=== PATIENT | female | born 1940 | race Caucasian/White ===

== ENCOUNTER 2016-09-21 04:24 | Inpatient (IN) | payer MEDICARE, BC ==
[~2016-09-21] VITALS: Ht 160 cm; Wt 94.2 kg
[2016-09-21] MEDS ORDERED: ACETAMINOPHEN 650 MG/20.3 ML UDC ONE (04:49)
[2016-09-21] MEDS ORDERED: ACETAMINOPHEN 325 MG TAB ONE (04:50)
[2016-09-21] MEDS ORDERED: SODIUM CHLORIDE 0.9% 1,000 ML ONE (05:00)
[2016-09-21] MEDS ORDERED: CEFTRIAXONE 1 GM VIAL ONE (06:20)
[2016-09-21] MEDS ORDERED: SODIUM CHLORIDE 0.9% 100 ML IV ONE (06:21)
[2016-09-21] MEDS ORDERED: METHYLPRED SOD SUCC 125 MG/2 ML VIAL IV ONE (08:15)
[2016-09-21] MEDS ORDERED: NITROGLYCERIN 0.3 MG SL PRN (08:20)
[2016-09-21] MEDS ORDERED: ARTIF TEARS OP SOLN 0.4ML EYE EACH PRN (08:20)
[2016-09-21] MEDS ORDERED: SALINE FLUSH 10 ML FLUSH PRN (08:25)
[2016-09-21] MEDS ORDERED: DEXTROSE 50% SYRINGE 50 ML IV PRN (08:25)
[2016-09-21] MEDS ORDERED: GLUCAGON 1 MG VIAL IM PRN (08:25)
[2016-09-21] MEDS ORDERED: ACETAMINOPHEN 325 MG TAB PO PRN (08:25)
[2016-09-21] MEDS: CEFTRIAXONE 1 GM in SODIUM CHLORIDE 0.9% 50 ML IV SCH (09:00)
[2016-09-21 10:00] VITALS: BP_SYST 118; BP_SYST 122; RESP 16; TEMP 98.8; Ht 160 cm; Wt 94.2 kg
[2016-09-21] MEDS: SODIUM CHLORIDE 0.9% 1,000 ML IV SCH ×2 (10:06→17:24)
[2016-09-21] MEDS: [UNRECOGNIZED DRUG - REMARK] XX SCH ×2 (11:27→19:40)
[2016-09-21] MEDS: METRONIDAZOLE 500 MG TAB PO SCH ×3 (11:30→20:38)
[2016-09-21] MEDS: ASPIRIN 81 MG CHEW TAB PO SCH (11:30)
[2016-09-21] MEDS: FAMOTIDINE 20 MG INJ IV SCH ×2 (11:30→20:40)
[2016-09-21] MEDS: GABAPENTIN 300 MG CAP PO SCH ×2 (11:31→20:39)
[2016-09-21] MEDS: FLUTICASONE 0.05% NA BTL NARE EACH SCH ×2 (11:31→20:42)
[2016-09-21] MEDS: COMBIGAN OP SOLN EYE EACH SCH ×2 (11:31→20:42)
[2016-09-21] MEDS: PREDNISONE 20 MG TAB PO SCH (11:37)
[2016-09-21 11:48] VITALS: RESP 16
[2016-09-21 16:45] VITALS: BP_SYST 120; RESP 16; TEMP 98.8
[2016-09-21 19:58] VITALS: BP_SYST 120; RESP 20; TEMP 97.4
[2016-09-21] MEDS: LORAZEPAM 0.5 MG TAB PO SCH (20:42)
[2016-09-21] MEDS ORDERED: MONTELUKAST 10 MG TAB PO SCH (21:00)
[2016-09-21] MEDS: SALINE FLUSH 10 ML FLUSH SCH (21:04)
[2016-09-21 22:37] VITALS: BP_SYST 130; RESP 20
[2016-09-22] VITALS (7 sets, daily range): BP systolic 92–134; RESP 18–20; TEMP 97.2–98.5
[2016-09-22] MEDS: SODIUM CHLORIDE 0.9% FLUSH BAG 500 ML IV SCH (06:00)
[2016-09-22] MEDS: SALINE FLUSH 10 ML FLUSH SCH ×2 (07:08→19:40)
[2016-09-22] MEDS: [UNRECOGNIZED DRUG - REMARK] XX SCH ×2 (08:00→19:40)
[2016-09-22] MEDS: PREDNISONE 20 MG TAB PO SCH (08:24)
[2016-09-22] MEDS: CEFTRIAXONE 1 GM in SODIUM CHLORIDE 0.9% 50 ML IV SCH (08:24)
[2016-09-22] MEDS: ASPIRIN 81 MG CHEW TAB PO SCH (08:24)
[2016-09-22] MEDS: GABAPENTIN 300 MG CAP PO SCH ×2 (08:24→21:59)
[2016-09-22] MEDS: METRONIDAZOLE 500 MG TAB PO SCH ×3 (08:24→21:59)
[2016-09-22] MEDS: FAMOTIDINE 20 MG INJ IV SCH (08:25)
[2016-09-22] MEDS: FLUTICASONE 0.05% NA BTL NARE EACH SCH ×2 (08:25→22:00)
[2016-09-22] MEDS: COMBIGAN OP SOLN EYE EACH SCH ×2 (08:26→21:59)
[2016-09-22] MEDS ORDERED: KCL CR 10 MEQ CAP PO ONE (09:25)
[2016-09-22] MEDS ORDERED: [UNRECOGNIZED DRUG - OTHER] TOPICAL SCH (09:50)
[2016-09-22] MEDS ORDERED: DILAUDID 1 MG/ML AMP IV PRN (10:15)
[2016-09-22] MEDS: SODIUM CHLORIDE 0.9% 1,000 ML IV SCH (10:57)
[2016-09-22] MEDS: ONDANSETRON 4 MG VIAL IV PUSH PRN ×2 (10:57→22:18)
[2016-09-22] MEDS ORDERED: PROMETHAZINE 25 MG/ML VIAL IV PRN (13:15)
[2016-09-22] MEDS: FAMOTIDINE 20 MG TAB PO SCH (21:59)
[2016-09-22] MEDS: LORAZEPAM 0.5 MG TAB PO SCH (21:59)
[2016-09-22] MEDS: NEB-ALBUTEROL 2.5 MG/3 ML INH PRN (22:02)
[2016-09-23] VITALS (7 sets, daily range): BP systolic 122–170; RESP 18–24; TEMP 97.6–99.6
[2016-09-23] MEDS: SODIUM CHLORIDE 0.9% 1,000 ML IV SCH (02:03)
[2016-09-23] MEDS: NEB-ALBUTEROL 2.5 MG/3 ML INH PRN ×2 (04:06→11:05)
[2016-09-23] MEDS ORDERED: Furosemide 40 MG/4 ML VIAL ONE (04:07)
[2016-09-23] MEDS ORDERED: Furosemide 20 MG/2 ML VIAL IV ONE (04:50)
[2016-09-23] MEDS: SODIUM CHLORIDE 0.9% FLUSH BAG 500 ML IV SCH (06:16)
[2016-09-23] MEDS: [UNRECOGNIZED DRUG - REMARK] XX SCH ×2 (08:00→19:32)
[2016-09-23] MEDS ORDERED: PHARMACY TO DOSE XX SCH (08:10)
[2016-09-23] MEDS: FLUTICASONE 0.05% NA BTL NARE EACH SCH ×2 (08:15→20:26)
[2016-09-23] MEDS: GABAPENTIN 300 MG CAP PO SCH ×2 (08:15→21:52)
[2016-09-23] MEDS: ASPIRIN 81 MG CHEW TAB PO SCH (08:15)
[2016-09-23] MEDS: COMBIGAN OP SOLN EYE EACH SCH ×2 (08:15→20:26)
[2016-09-23] MEDS: FAMOTIDINE 20 MG TAB PO SCH ×2 (08:15→21:52)
[2016-09-23] MEDS: SALINE FLUSH 10 ML FLUSH SCH ×2 (08:15→20:26)
[2016-09-23] MEDS: PREDNISONE 20 MG TAB PO SCH (08:15)
[2016-09-23] MEDS: ERTAPENEM 1,000 MG in SODIUM CHLORIDE 0.9% 50 ML IV SCH (09:24)
[2016-09-23] MEDS: ONDANSETRON 4 MG VIAL IV PUSH PRN (14:56)
[2016-09-23] MEDS: DUONEB INH SCH ×3 (15:50→22:23)
[2016-09-23] MEDS ORDERED: Furosemide 40 MG/4 ML VIAL IV ONE (15:50)
[2016-09-23] MEDS: Furosemide 40 MG/4 ML VIAL IV SCH (16:13)
[2016-09-23] MEDS: LORAZEPAM 0.5 MG TAB PO SCH (21:52)
[2016-09-23] MEDS: GUAIFENESIN ER 600 MG TABCR PO SCH (21:52)
[2016-09-24 03:09] VITALS: BP_SYST 102; RESP 22; TEMP 97.4
[2016-09-24] MEDS: SODIUM CHLORIDE 0.9% FLUSH BAG 500 ML IV SCH (04:36)
[2016-09-24] MEDS: DUONEB INH SCH ×5 (06:37→23:15)
[2016-09-24] MEDS: [UNRECOGNIZED DRUG - REMARK] XX SCH ×2 (08:00→20:00)
[2016-09-24 08:03] VITALS: BP_SYST 130; RESP 20; TEMP 97.7
[2016-09-24] MEDS: SALINE FLUSH 10 ML FLUSH SCH ×2 (09:05→19:30)
[2016-09-24] MEDS: Furosemide 40 MG/4 ML VIAL IV SCH (09:07)
[2016-09-24] MEDS: ERTAPENEM 1,000 MG in SODIUM CHLORIDE 0.9% 50 ML IV SCH (09:07)
[2016-09-24] MEDS: FLUTICASONE 0.05% NA BTL NARE EACH SCH ×2 (09:08→20:15)
[2016-09-24] MEDS: PREDNISONE 20 MG TAB PO SCH (09:08)
[2016-09-24] MEDS: FAMOTIDINE 20 MG TAB PO SCH ×2 (09:08→20:15)
[2016-09-24] MEDS: GABAPENTIN 300 MG CAP PO SCH ×2 (09:09→20:16)
[2016-09-24] MEDS: ASPIRIN 81 MG CHEW TAB PO SCH (09:09)
[2016-09-24] MEDS: GUAIFENESIN ER 600 MG TABCR PO SCH ×2 (09:09→20:15)
[2016-09-24] MEDS: ONDANSETRON 4 MG VIAL IV PUSH PRN ×2 (10:21→20:17)
[2016-09-24] MEDS ORDERED: MISSING DOSE XX ONE (10:25)
[2016-09-24] MEDS: COMBIGAN OP SOLN EYE EACH SCH ×2 (12:11→20:15)
[2016-09-24 14:17] VITALS: BP_SYST 130; RESP 20; TEMP 98.3
[2016-09-24] MEDS ORDERED: Furosemide 40 MG/4 ML VIAL IV SCH (17:00)
[2016-09-24 17:35] VITALS: BP_SYST 138; TEMP 98.6
[2016-09-24 19:55] VITALS: BP_SYST 168; TEMP 98.5
[2016-09-24] MEDS: LORAZEPAM 0.5 MG TAB PO SCH (20:14)
[2016-09-24 23:53] VITALS: BP_SYST 122; RESP 20; TEMP 97.6
[2016-09-25 04:44] VITALS: BP_SYST 146; RESP 20; TEMP 97.7
[2016-09-25] MEDS: SODIUM CHLORIDE 0.9% FLUSH BAG 500 ML IV SCH (05:12)
[2016-09-25] MEDS: [UNRECOGNIZED DRUG - REMARK] XX SCH ×2 (07:26→20:00)
[2016-09-25] MEDS: SALINE FLUSH 10 ML FLUSH SCH ×2 (07:33→19:21)
[2016-09-25 07:48] VITALS: BP_SYST 138; RESP 16; TEMP 97.3
[2016-09-25] MEDS: DUONEB INH SCH ×5 (08:12→22:34)
[2016-09-25] MEDS: ERTAPENEM 1,000 MG in SODIUM CHLORIDE 0.9% 50 ML IV SCH (08:39)
[2016-09-25] MEDS: ASPIRIN 81 MG CHEW TAB PO SCH (08:40)
[2016-09-25] MEDS: GUAIFENESIN ER 600 MG TABCR PO SCH ×2 (08:40→21:00)
[2016-09-25] MEDS: Furosemide 40 MG TAB PO SCH (08:40)
[2016-09-25] MEDS: COMBIGAN OP SOLN EYE EACH SCH ×2 (08:40→21:01)
[2016-09-25] MEDS: FLUTICASONE 0.05% NA BTL NARE EACH SCH ×2 (08:40→21:01)
[2016-09-25] MEDS: GABAPENTIN 300 MG CAP PO SCH ×2 (08:41→21:00)
[2016-09-25] MEDS: FAMOTIDINE 20 MG TAB PO SCH ×2 (08:41→21:00)
[2016-09-25] MEDS: PREDNISONE 20 MG TAB PO SCH (08:41)
[2016-09-25 12:05] VITALS: BP_SYST 130; RESP 16; TEMP 97.2
[2016-09-25 15:07] VITALS: BP_SYST 148; RESP 16; TEMP 97.9
[2016-09-25] MEDS: [UNRECOGNIZED DRUG - OTHER] TOPICAL PRN (17:50)
[2016-09-25] MEDS: ONDANSETRON 4 MG VIAL IV PUSH PRN (19:20)
[2016-09-25 19:30] VITALS: BP_SYST 158; RESP 20; TEMP 97.6
[2016-09-25] MEDS: LORAZEPAM 0.5 MG TAB PO SCH (20:59)
[2016-09-26] VITALS (7 sets, daily range): BP systolic 120–138; RESP 16–20; TEMP 96.3–98.5
[2016-09-26] MEDS: SODIUM CHLORIDE 0.9% FLUSH BAG 500 ML IV SCH (05:12)
[2016-09-26] MEDS: [UNRECOGNIZED DRUG - REMARK] XX SCH ×2 (08:00→20:00)
[2016-09-26] MEDS: DUONEB INH SCH ×5 (08:01→22:06)
[2016-09-26] MEDS ORDERED: MISSING DOSE XX ONE (08:20)
[2016-09-26] MEDS: ERTAPENEM 1,000 MG in SODIUM CHLORIDE 0.9% 50 ML IV SCH (08:21)
[2016-09-26] MEDS: FAMOTIDINE 20 MG TAB PO SCH ×2 (08:22→21:07)
[2016-09-26] MEDS: GABAPENTIN 300 MG CAP PO SCH ×2 (08:22→21:09)
[2016-09-26] MEDS: FLUTICASONE 0.05% NA BTL NARE EACH SCH ×2 (08:22→21:09)
[2016-09-26] MEDS: SALINE FLUSH 10 ML FLUSH SCH ×2 (08:22→21:10)
[2016-09-26] MEDS: GUAIFENESIN ER 600 MG TABCR PO SCH ×2 (08:22→21:08)
[2016-09-26] MEDS: ASPIRIN 81 MG CHEW TAB PO SCH (08:22)
[2016-09-26] MEDS: COMBIGAN OP SOLN EYE EACH SCH ×2 (08:22→21:09)
[2016-09-26] MEDS ORDERED: Furosemide 40 MG TAB PO SCH (09:00)
[2016-09-26] MEDS: Furosemide 40 MG TAB PO SCH (10:12)
[2016-09-26] MEDS: [UNRECOGNIZED DRUG - OTHER] TOPICAL PRN (10:37)
[2016-09-26] MEDS ORDERED: Furosemide 40 MG/4 ML VIAL IV ONE (12:30)
[2016-09-26] MEDS: LORAZEPAM 0.5 MG TAB PO SCH (21:09)
[2016-09-27 03:33] VITALS: BP_SYST 124; RESP 20; TEMP 98.3
[2016-09-27] MEDS: SODIUM CHLORIDE 0.9% FLUSH BAG 500 ML IV SCH (06:13)
[2016-09-27] MEDS: DUONEB INH SCH ×5 (07:18→22:10)
[2016-09-27] MEDS: [UNRECOGNIZED DRUG - REMARK] XX SCH ×2 (07:27→19:39)
[2016-09-27 08:11] VITALS: BP_SYST 106; RESP 18; TEMP 97.3
[2016-09-27] MEDS: ERTAPENEM 1,000 MG in SODIUM CHLORIDE 0.9% 50 ML IV SCH (08:37)
[2016-09-27] MEDS: GUAIFENESIN ER 600 MG TABCR PO SCH ×2 (08:37→22:08)
[2016-09-27] MEDS: GABAPENTIN 300 MG CAP PO SCH ×2 (08:37→22:08)
[2016-09-27] MEDS: COMBIGAN OP SOLN EYE EACH SCH ×2 (08:37→21:24)
[2016-09-27] MEDS: FAMOTIDINE 20 MG TAB PO SCH ×2 (08:37→22:08)
[2016-09-27] MEDS: SALINE FLUSH 10 ML FLUSH SCH ×2 (08:37→21:23)
[2016-09-27] MEDS: ASPIRIN 81 MG CHEW TAB PO SCH (08:37)
[2016-09-27] MEDS: FLUTICASONE 0.05% NA BTL NARE EACH SCH ×2 (08:37→21:24)
[2016-09-27] MEDS: Furosemide 40 MG TAB PO SCH (08:38)
[2016-09-27 10:28] VITALS: BP_SYST 114; RESP 18; TEMP 97.5
[2016-09-27] MEDS: ONDANSETRON 4 MG VIAL IV PUSH PRN (11:47)
[2016-09-27 15:37] VITALS: BP_SYST 114; RESP 18; TEMP 95.6
[2016-09-27 19:20] VITALS: BP_SYST 122; RESP 18; TEMP 98.4
[2016-09-27] MEDS: LORAZEPAM 0.5 MG TAB PO SCH (22:08)
[2016-09-27 23:00] VITALS: BP_SYST 130; RESP 18; TEMP 98.6
[2016-09-28] MEDS: SODIUM CHLORIDE 0.9% FLUSH BAG 500 ML IV SCH (06:37)
[2016-09-28] MEDS: DUONEB INH SCH ×5 (07:54→23:00)
[2016-09-28] MEDS: [UNRECOGNIZED DRUG - REMARK] XX SCH ×2 (07:58→20:00)
[2016-09-28 08:15] VITALS: BP_SYST 138; RESP 16; TEMP 97.8
[2016-09-28] MEDS: Furosemide 40 MG TAB PO SCH (08:47)
[2016-09-28] MEDS: FLUTICASONE 0.05% NA BTL NARE EACH SCH ×2 (08:47→20:13)
[2016-09-28] MEDS: SALINE FLUSH 10 ML FLUSH SCH ×2 (08:47→20:13)
[2016-09-28] MEDS: FAMOTIDINE 20 MG TAB PO SCH ×2 (08:47→20:14)
[2016-09-28] MEDS: COMBIGAN OP SOLN EYE EACH SCH ×2 (08:47→20:13)
[2016-09-28] MEDS: GUAIFENESIN ER 600 MG TABCR PO SCH ×2 (08:47→20:14)
[2016-09-28] MEDS: ASPIRIN 81 MG CHEW TAB PO SCH (08:47)
[2016-09-28] MEDS: GABAPENTIN 300 MG CAP PO SCH ×2 (08:48→20:14)
[2016-09-28] MEDS: ERTAPENEM 1,000 MG in SODIUM CHLORIDE 0.9% 50 ML IV SCH (08:50)
[2016-09-28 10:58] VITALS: BP_SYST 126; RESP 18; TEMP 97.2
[2016-09-28] MEDS ORDERED: AZITHROMYCIN 250 MG TAB PO ONE (13:05)
[2016-09-28] MEDS: AZITHROMYCIN 250 MG TAB PO SCH (13:08)
[2016-09-28 14:45] VITALS: BP_SYST 118; RESP 18; TEMP 97.5
[2016-09-28 19:30] VITALS: BP_SYST 122; RESP 18; TEMP 98.3
[2016-09-28] MEDS: LORAZEPAM 0.5 MG TAB PO SCH (20:13)
[2016-09-29] VITALS (7 sets, daily range): BP systolic 118–160; RESP 16–20; TEMP 97–98.6
[2016-09-29] MEDS: SODIUM CHLORIDE 0.9% FLUSH BAG 500 ML IV SCH (06:00)
[2016-09-29] MEDS: DUONEB INH SCH ×5 (06:33→22:50)
[2016-09-29] MEDS: [UNRECOGNIZED DRUG - REMARK] XX SCH ×2 (08:00→20:00)
[2016-09-29] MEDS: SALINE FLUSH 10 ML FLUSH SCH ×2 (08:21→20:48)
[2016-09-29] MEDS: COMBIGAN OP SOLN EYE EACH SCH ×2 (08:22→20:48)
[2016-09-29] MEDS: Furosemide 40 MG TAB PO SCH (08:22)
[2016-09-29] MEDS: GABAPENTIN 300 MG CAP PO SCH ×2 (08:22→20:49)
[2016-09-29] MEDS: FLUTICASONE 0.05% NA BTL NARE EACH SCH ×2 (08:22→20:48)
[2016-09-29] MEDS: ASPIRIN 81 MG CHEW TAB PO SCH (08:22)
[2016-09-29] MEDS: AZITHROMYCIN 250 MG TAB PO SCH (08:23)
[2016-09-29] MEDS: GUAIFENESIN ER 600 MG TABCR PO SCH ×2 (08:23→20:51)
[2016-09-29] MEDS: FAMOTIDINE 20 MG TAB PO SCH ×2 (08:23→20:49)
[2016-09-29] MEDS: ERTAPENEM 1,000 MG in SODIUM CHLORIDE 0.9% 50 ML IV SCH (08:24)
[2016-09-29] MEDS ORDERED: Furosemide 40 MG/4 ML VIAL IV ONE (13:50)
[2016-09-29] MEDS: [UNRECOGNIZED DRUG - OTHER] TOPICAL PRN (20:48)
[2016-09-29] MEDS: LORAZEPAM 0.5 MG TAB PO SCH (20:49)
[2016-09-30 04:10] VITALS: BP_SYST 110; TEMP 98.1
[2016-09-30] MEDS: SODIUM CHLORIDE 0.9% FLUSH BAG 500 ML IV SCH (06:08)
[2016-09-30] MEDS: DUONEB INH SCH ×3 (06:41→14:37)
[2016-09-30 07:37] VITALS: BP_SYST 126; RESP 16; TEMP 97.9
[2016-09-30] MEDS: [UNRECOGNIZED DRUG - REMARK] XX SCH (07:38)
[2016-09-30] MEDS: GUAIFENESIN ER 600 MG TABCR PO SCH (08:52)
[2016-09-30] MEDS: FAMOTIDINE 20 MG TAB PO SCH (08:52)
[2016-09-30] MEDS: SALINE FLUSH 10 ML FLUSH SCH (08:52)
[2016-09-30] MEDS: GABAPENTIN 300 MG CAP PO SCH (08:52)
[2016-09-30] MEDS: ASPIRIN 81 MG CHEW TAB PO SCH (08:52)
[2016-09-30] MEDS: Furosemide 40 MG TAB PO SCH (08:53)
[2016-09-30] MEDS: FLUTICASONE 0.05% NA BTL NARE EACH SCH (08:54)
[2016-09-30] MEDS: COMBIGAN OP SOLN EYE EACH SCH (08:54)
[2016-09-30] MEDS: AZITHROMYCIN 250 MG TAB PO SCH (09:13)
[2016-09-30 12:32] VITALS: BP_SYST 110; RESP 16; TEMP 97
[2016-09-30 17:13] VITALS: BP_SYST 110; RESP 16; TEMP 97
== END 2016-09-30 18:00 | disposition home or self-care (01) | DRG 871 ==
LOC: ENRESERVTM → ENRESERVDT → ER 04:24 → ENPENDDIS 08:29 → EMR 08:29 → 3NT 09:44
PROVIDERS: ADMIT Hospitalist; ATTEND Hospitalist
DX: A41.9 Sepsis, unspecified organism (principal); J81.0 Acute pulmonary edema; E11.65 Type 2 diabetes mellitus with hyperglycemia; N39.0 Urinary tract infection, site not specified; E66.01 Morbid (severe) obesity due to excess calories; N28.1 Cyst of kidney, acquired; B96.20 Unspecified Escherichia coli [E. coli] as the cause of diseases classified elsewhere; Z16.12 Extended spectrum beta lactamase (ESBL) resistance; A08.4 Viral intestinal infection, unspecified; I10 Essential (primary) hypertension; Z79.84 Long term (current) use of oral hypoglycemic drugs; E78.5 Hyperlipidemia, unspecified; J45.909 Unspecified asthma, uncomplicated; M17.12 Unilateral primary osteoarthritis, left knee; E86.0 Dehydration; M10.9 Gout, unspecified; K21.9 Gastro-esophageal reflux disease without esophagitis; H40.9 Unspecified glaucoma; K57.90 Diverticulosis of intestine, part unspecified, without perforation or abscess without bleeding; Z79.82 Long term (current) use of aspirin; Z68.36 Body mass index [BMI] 36.0-36.9, adult; J20.9 Acute bronchitis, unspecified
CPT/HCPCS: 36415; 71010; 71020; 76770; 80048; 80053; 81001; 82947; 83036; 83605; 83630; 83690; 83880; 84484; 84550; 85025; 87040; 87045; 87046; 87077; 87088; 87186; 87493; 87804; 93306; 94640; 94799; 96361; 96365; 99223; 99233; 99239